=== PATIENT | female | born 1960 | race African-American/Black ===

== ENCOUNTER 2017-02-10 10:17 | Emergency (ER) | payer OTHER ==
[2017-02-10 10:32] VITALS: BP 118/73
--- NOTE | 2017-02-10 11:02 | UC ---
Complaint Female HPI - HPI Summary HPI Summary: Pt presents with urinary symptoms. She tells me that for the past 5-7 days she has had urinary frequency, pain, pressure, and pain. She has had UTIs as a child and a couple in her adult life, but none recently. She also complains of some lower abdominal "cramping" that is relieved with a BM or passing gas. She denies fever, chills, SOB, chest pain, N/V/D/C, flank pain, gross hematuria, vaginal discharge or bleeding. - History Of Current Complaint Chief Complaint: UCGU Stated Complaint: UTI Hx Obtained From: Patient Hx Last Menstrual Period: menopausal Onset/Duration: Gradual Onset Severity Initially: Moderate Severity Currently: Moderate Pain Intensity: 6 Pain Scale Used: 0-10 Numeric Character: Sharp, Burning, Cramping Aggravating Factor(s): Urination - Allergies/Home Medications Allergies/Adverse Reactions: Allergies Allergy/AdvReac Type Severity Reaction Status Date / Time No Known Allergies Allergy Verified 02/10/17 10:24 Home Medications: Home Medications Albuterol HFA INHALER* [Ventolin HFA Inhaler*] 1 puff INH Q4H PRN 02/10/17 [ History Confirmed 02/10/17] Albuterol/Ipratropium RESP(NF) [Combivent Respimat(NF)] 1 aer IN 02/10/17 [ History] Amlodipine Besylate [Norvasc 5 mg tab] 5 mg PO DAILY 02/10/17 [History Confirmed 02/10/17] Diphenhydramine HCl [Benadryl Allergy 25 MG CAP] 25 mg PO BID WITH MEALS PRN [History Confirmed 02/10/17] Ipratropium 0.5MG/2.5ML NEB* [Atrovent 0.5 MG NEB.OMID*] 0.5 mg INH Q6H PRN 02/10 [History Confirmed 02/10/17] Mirtazapine [Remeron] 30 mg PO 02/10/17 [History] Tiotropium CAP.INH* [Spiriva CAP.INH*] 1 cap.inh INH DAILY 02/10/17 [History Confirmed 02/10/17] Umeclidin/Vilant 62.5 MDI(NF) [ANORO 62.5/25 Ellipta DEVICE (NF)] 1 inh INH PRN 02/10/17 [History] buPROPion TAB* [Wellbutrin TAB*] 75 mg PO DAILY 02/10/17 [History Confirmed ] PMH/Surg Hx/FS Hx/Imm Hx Previously Healthy: Yes - Surgical History Surgical History: Yes Surgery Procedure, Year, and Place: cone biopsy 1994. cyst removal 1994 - Social History Occupation: Employed Full-time Lives: With Family Alcohol Use: Daily Alcohol Amount: 1 beer per day Substance Use Type: None Smoking Status (MU): Heavy Every Day Tobacco Smoker Amount Used/How Often: 03/23 ppd Cessation Counseling: Counseled 3+Min - 10 Min Review of Systems Constitutional: Negative Skin: Negative Respiratory: Negative Cardiovascular: Negative Gastrointestinal: Abdominal Pain - Lower Genitourinary: Dysuria, Frequency, Urgency All Other Systems Reviewed And Are Negative: Yes Physical Exam Triage Information Reviewed: Yes Appearance: Well-Appearing, Well-Nourished Vital Signs: Initial Vital Signs Temp 97.7 F 02/10/17 10:25 Pulse 91 02/10/17 10:25 Resp 18 02/10/17 10:25 BP 118/73 02/10/17 10:25 Pulse Ox 100 02/10/17 10:25 Vital Signs Reviewed: Yes Respiratory: Positive: Chest non-tender, Lungs clear, Normal breath sounds, No respiratory distress, No accessory muscle use Cardiovascular: Positive: RRR, No Murmur, Pulses Normal Abdomen Description: Positive: Nontender, No Organomegaly, Soft. Negative: CVA Tenderness (R), CVA Tenderness (L), Distended, Guarding Neurological: Positive: Alert Psychological: Positive: Age Appropriate Behavior Skin: Negative: rashes Complaint Female Dx - Course Course Of Treatment: Urine with 2+ protein, 3+ blood, and 3+ leuks - will treat with Bactrim and send for culture. Low suspicion for renal calculi as she has no flank pain, discrete sharp pain, history of calculi, and her lower abd pain is relieved with passing stool/gas. - Differential Dx/Diagnosis Differential Diagnosis/HQI/PQRI: , Renal Colic, Sexually Transmitted Disease, Ureteral Stone, Urinary Tract Infection Provider Diagnoses: UTI Discharge - Discharge Plan Condition: Stable Disposition: HOME Prescriptions: Phenazopyridine 200 mg (NF) [Pyridium 200 MG tab *] 200 mg PO TID #6 tab Sulfamethox/Trimethoprim DS* [Bactrim DS 800/160 TAB*] 1 tab PO BID #10 tab Patient Education Materials: Urinary Tract Infection in Women (ED) Referrals: Art Sher MD [Primary Care Provider] - Additional Instructions: If you develop a fever, SOB, chest pain, new or worsening symptoms - please call your PCP or go to the ED.
== END 2017-02-10 11:40 | disposition home or self-care (01) ==
LOC: UCEAST 10:17
DX: N39.0 Urinary tract infection, site not specified (principal); B96.20 Unspecified Escherichia coli [E. coli] as the cause of diseases classified elsewhere; Z72.0 Tobacco use; Z72.89 Other problems related to lifestyle
CPT/HCPCS: 81003; 87077; 87086; 87186; 99212; G0463

== ENCOUNTER 2019-02-26 10:38 | Emergency (ER) | payer OTHER ==
[2019-02-26 10:51] VITALS: BP 133/80
--- NOTE | 2019-02-26 11:13 | UC ---
Respiratory Complaint HPI - HPI Summary HPI Summary: 58 yo with one week history of upper respiratory symptoms, including fever, cough, shortness of breath and purulent sputum. Concerned because of increasing symptoms and lack of improvement with use of Flonase and otc medications. - History of Current Complaint Chief Complaint: UCRespiratory Stated Complaint: SOB, COUGH, CONGESTION Time Seen by Provider: 02/26/19 11:07 Hx Obtained From: Patient Hx Last Menstrual Period: menopausal Onset/Duration: Gradual Onset, Lasting Days - 7 Timing: Intermittent Episodes Severity Initially: Moderate Severity Currently: Moderate Pain Intensity: 4 Character: Cough: Productive, Sputum Description: - yellow and foul smelling. Aggravating Factors: Exertion, Recumbent Position Alleviating Factors: Bronchodilator - uses albuterol minimally due to side effect of sore throat., Upright Position Associated Signs And Symptoms: Positive: Dyspnea, Fever, Chills, Dizziness, Nasal Congestion, Sinus Discomfort - Allergies/Home Medications Allergies/Adverse Reactions: Allergies Allergy/AdvReac Type Severity Reaction Status Date / Time No Known Allergies Allergy Verified 02/26/19 10:51 Home Medications: Home Medications Cyanocobalamin TAB* [Vitamin B12 TAB*] 500 mcg PO DAILY 02/26/19 [History Confirmed 02/26/19] Fluticasone NASAL SPRAY 50MCG* [Flonase NASAL SPRAY 50MCG*] 2 spray BOTH NARES DAILY 02/26/19 [History Confirmed 02/26/19] Melatonin 5 mg PO DAILY 02/26/19 [History Confirmed 02/26/19] traZODone TAB* [Desyrel TAB*] 100 mg PO BEDTIME 02/26/19 [History Confirmed 11/07] PMH/Surg Hx/FS Hx/Imm Hx Cardiovascular History: Hypertension Respiratory History: COPD - Surgical History Surgical History: Yes Surgery Procedure, Year, and Place: cone biopsy 1994. cyst removal 1994 - Family History Known Family History: Positive: Non-Contributory - Social History Occupation: Employed Full-time Lives: Alone Alcohol Use: Daily Alcohol Amount: 1 beer per day Substance Use Type: None Smoking Status (MU): Heavy Every Day Tobacco Smoker Amount Used/How Often: 1/2 ppd Review of Systems All Other Systems Reviewed And Are Negative: Yes Constitutional: Positive: Fever - x 2 days ago., Fatigue Skin: Positive: Negative Eyes: Positive: Negative ENT: Positive: Sore Throat, Nasal Discharge, Sinus Congestion Respiratory: Positive: Shortness Of Breath, Cough Cardiovascular: Negative: Palpitations, Chest Pain Gastrointestinal: Positive: Negative Genitourinary: Positive: Negative Motor: Positive: Negative Neurovascular: Positive: Negative Musculoskeletal: Positive: Negative Neurological: Positive: Negative Psychological: Positive: Negative Is Patient Immunocompromised?: No Physical Exam Triage Information Reviewed: Yes Appearance: Ill-Appearing - looks fatigued Vital Signs: Initial Vital Signs Temp 97.8 F 02/26/19 10:49 Pulse 74 02/26/19 10:49 Resp 20 02/26/19 10:49 BP 133/80 02/26/19 10:49 Pulse Ox 100 02/26/19 10:49 Eyes: Positive: Conjunctiva Clear ENT: Positive: Pharyngeal erythema, TMs normal Neck: Positive: Supple, Nontender, No Lymphadenopathy Respiratory: Positive: Decreased breath sounds, Rhonchi - both lung ruiz, Wheezing Cardiovascular: Positive: RRR, No Murmur Musculoskeletal Exam: Normal Neurological Exam: Normal Neurological: Positive: Alert Psychological Exam: Normal Skin Exam: Normal Respiratory Course/Dx - Course Course Of Treatment: COPD exacerbation treated with antibiotics and steroids. Her preference is to use azithromycin. We discussed role of steroids in exacerbation. - Differential Dx/Diagnosis Differential Diagnosis/HQI/PQRI: Asthma, Bronchitis, Exacerbation Of COPD, Lower Resp Infection Provider Diagnosis: COPD exacerbation Discharge ED - Sign-Out/Discharge Documenting (check all that apply): Patient Departure All imaging exams completed and their final reports reviewed: No Studies - Discharge Plan Condition: Stable Disposition: HOME Prescriptions: Azithromyxin OLE (NF) [Z-Ole (Zithromax) 250 mg tabs #6] 2 tab PO .TODAY, THEN 1 DAILY #6 tab predniSONE [Prednisone 20 MG TAB] 2 tab PO DAILY #10 tablet Patient Education Materials: COPD (Chronic Obstructive Pulmonary Disease) (ED) Referrals: Art Sher MD [Primary Care Provider] - Additional Instructions: You have been prescribed azithromycin as an antibiotic and prednisone to help to decrease airway inflammation. Prednisone dose is 40mg daily with food. Continue use of Spiriva daily and albuterol as needed. Follow up with Dr. Noguera if you do not see improvement after 3 days of treatment; follow up earlier if your symptoms worsen. - Billing Disposition and Condition Condition: STABLE Disposition: Home
== END 2019-02-26 11:52 | disposition home or self-care (01) ==
LOC: UCEAST 10:38
DX: J44.1 Chronic obstructive pulmonary disease with (acute) exacerbation (principal); I10 Essential (primary) hypertension; F17.210 Nicotine dependence, cigarettes, uncomplicated
CPT/HCPCS: 99212; G0463